=== PATIENT | male | born 1930 | race Caucasian/White ===

== ENCOUNTER 2018-02-24 11:25 | Inpatient (IN) | payer MEDICARE, OTHER ==
[~2018-02-24] VITALS: Ht 180.3 cm; Wt 92.5 kg
[2018-02-24 12:25] LABS: BASOPHILS # (AUTO) 0.04 x10^3/uL (0-0.1); BASOPHILS % (AUTO) 0 % (0-1); EOSINOPHILS # (AUTO) 0.09 x10^3/uL (0-0.4); EOSINOPHILS % (AUTO) 1 % (1-7); LYMPHOCYTES # (AUTO) 1.36 x10^3/uL (1-3.4); LYMPHOCYTES % (AUTO) 14 % (22-44); MD NO; MEAN CORPUSCULAR HEMOGLOBIN 31.8 pg (27.5-34.5); MEAN CORPUSCULAR HGB CONC 33.3 g/dL (33.2-36.2); MEAN CORPUSCULAR VOLUME 95.3 fL (81-97); MEAN PLATELET VOLUME 7.9 fL (7.4-10.4); MONOCYTES # (AUTO) 0.55 x10^3/uL (0.2-0.8); MONOCYTES % (AUTO) 6 % (2-9); NEUTROPHILS # (AUTO) 7.82 x10^3/uL (1.8-6.8); NEUTROPHILS % (AUTO) 79 % (42-75); PLATELET COUNT 257 x10^3/uL (130-400); RED BLOOD COUNT 5.18 x10^6/uL (4.38-5.82); RED CELL DISTRIBUTION WIDTH 13.5 % (9.4-14.8)
[2018-02-24 12:29] LABS: INTERNATIONAL NORMALIZED RATIO 1.04 (0.93-1.1); PROTHROMBIN TIME 10.7 Seconds (9.6-11.5)
[2018-02-24 12:31] LABS: ALBUMIN 3.4 g/dL (3.4-5.0); ANION GAP 11 mmol/L (5-15); CALCIUM 9.1 mg/dL (8.5-10.1); CHLORIDE 106 mmol/L (98-107)
[2018-02-24 12:37] LABS: ALANINE AMINOTRANSFERASE 18 U/L (12-78); ALKALINE PHOSPHATASE 112 U/L (45-117); BILIRUBIN,TOTAL 0.6 mg/dL (0.2-1.0); TOTAL PROTEIN 7.7 g/dL (6.4-8.2); TROPONIN I 0.017 ng/mL (0.000-0.045)
[2018-02-24] MEDS ORDERED: CEFTRIAXONE PMX 1GM/50ML 50 ML IV ONE (14:00)
[2018-02-24] MEDS ORDERED: AZITHROMYCIN 500 MG in SODIUM CHLORIDE 0.9% 250 ML IV ONE (14:00)
[2018-02-24] MEDS ORDERED: CHOL2000 PO (14:03)
[2018-02-24] MEDS ORDERED: GLIP5TAB22 PO (14:03)
[2018-02-24] MEDS ORDERED: QUET100T PO (14:03)
[2018-02-24] MEDS ORDERED: LEVE10007 PO ×2 (14:03)
[2018-02-24] MEDS ORDERED: BISMATROL PO (14:03)
[2018-02-24] MEDS ORDERED: ACET325T21 PO (14:03)
[2018-02-24] MEDS ORDERED: ASPI-515 PO (14:03)
[2018-02-24] MEDS ORDERED: SENN1TAB9 PO (14:03)
[2018-02-24] MEDS ORDERED: LORA-445 PO ×2 (14:03)
[2018-02-24] MEDS ORDERED: QUET50TA PO (14:03)
[2018-02-24] MEDS ORDERED: METF500T5 PO (14:03)
[2018-02-24] MEDS: PLEASE ENTER ALLERGIES MC SCH ×2 (14:05→22:00)
[2018-02-24] MEDS ORDERED: CEFTRIAXONE PMX 1GM/50ML 50 ML ONE (14:20)
[2018-02-24] MEDS ORDERED: SODIUM CHLORIDE 0.9% 1,000 ML IV SCH (14:37)
[2018-02-24] MEDS ORDERED: LIDOCAINE-MPF 2%, 2ML ONE (14:44)
[2018-02-24] MEDS ORDERED: SENNA/DOCUSATE TABLET PO PRN (15:00)
[2018-02-24] MEDS ORDERED: POLYETHYLENE GLYCOL 17 GM PACKET PO PRN (15:00)
[2018-02-24] MEDS ORDERED: BISACODYL 10 MG SUPP PR PRN (15:00)
[2018-02-24] MEDS ORDERED: LIDOCAINE-MPF 1%, 5ML INFIL ONE (15:00)
[2018-02-24] MEDS ORDERED: ACETAMINOPHEN 325 MG TABLET PO PRN ×2 (15:00)
[2018-02-24] MEDS ORDERED: ENALAPRILAT 1.25 MG/ML, 2ML IVPush PRN (15:00)
[2018-02-24] MEDS ORDERED: DOCUSATE 100 MG CAPSULE PO PRN (15:00)
[2018-02-24] MEDS ORDERED: ONDANSETRON 2MG/ML, 2ML IVPush PRN (15:00)
[2018-02-24] MEDS ORDERED: OMNIPAQUE 350 MG/ML, 100ML BOTTLE ONE (15:58)
[2018-02-24] MEDS ORDERED: LORazepam 0.5MG TABLET ONE (16:27)
[2018-02-24] MEDS: LORazepam 0.5MG TABLET PO SCH ×2 (16:41→21:48)
[2018-02-24 17:52] LABS: MICROSCOPIC NOT IND
[2018-02-24] MEDS: QUETIAPINE 100MG TABLET PO SCH (17:52)
[2018-02-24] MEDS: HEPARIN 5,000 UNITS/ML, 1ML SQ SCH ×2 (17:52→23:00)
[2018-02-24 17:57] LABS: CULTURE INDICATED? NO
[2018-02-24 19:00] LABS: TROPONIN I 0.024 ng/mL (0.000-0.045)
[2018-02-24 19:14] VITALS: BP 150/96
[2018-02-24] MEDS: QUETIAPINE 25MG TABLET PO SCH (21:48)
[2018-02-24] MEDS: LEVETIRACETAM 500 MG TABLET PO SCH (21:49)
[2018-02-25 00:56] LABS: BASOPHILS # (AUTO) 0.05 x10^3/uL (0-0.1); BASOPHILS % (AUTO) 1 % (0-1); EOSINOPHILS # (AUTO) 0.03 x10^3/uL (0-0.4); EOSINOPHILS % (AUTO) 0 % (1-7); LYMPHOCYTES # (AUTO) 1.17 x10^3/uL (1-3.4); LYMPHOCYTES % (AUTO) 10 % (22-44); MD NO; MEAN CORPUSCULAR HEMOGLOBIN 31.6 pg (27.5-34.5); MEAN CORPUSCULAR HGB CONC 33.7 g/dL (33.2-36.2); MEAN CORPUSCULAR VOLUME 93.8 fL (81-97); MONOCYTES # (AUTO) 0.99 x10^3/uL (0.2-0.8); MONOCYTES % (AUTO) 9 % (2-9); NEUTROPHILS # (AUTO) 9.13 x10^3/uL (1.8-6.8); NEUTROPHILS % (AUTO) 80 % (42-75); PLATELET COUNT 233 x10^3/uL (130-400); RED BLOOD COUNT 4.51 x10^6/uL (4.38-5.82); RED CELL DISTRIBUTION WIDTH 13.3 % (9.4-14.8)
[2018-02-25 01:06] LABS: ANION GAP 6 mmol/L (5-15); CALCIUM 8.2 mg/dL (8.5-10.1); CHLORIDE 110 mmol/L (98-107); CHOLESTEROL, TOTAL 146 mg/dL (140-239); TRIGLYCERIDES 142 mg/dL (50-200); VLDL CHOLESTEROL 28 mg/dL (0-25)
[2018-02-25 01:08] LABS: CHOL/HDL RATIO 4.6; HDL CHOL % 22 % (26-37); HDL CHOLESTEROL (DIRECT) 32 mg/dL (40-60); LDL CHOLESTEROL,CALCULATED 86 mg/dL (54-169); LDL/HDL RATIO 2.7 (0.5-3.0)
[2018-02-25 01:13] LABS: TROPONIN I 0.029 ng/mL (0.000-0.045)
[2018-02-25 01:23] VITALS: BP 139/86
[2018-02-25] MEDS: PLEASE ENTER ALLERGIES MC SCH ×2 (06:00→13:22)
[2018-02-25 08:23] VITALS: BP 128/67
[2018-02-25] MEDS: HEPARIN 5,000 UNITS/ML, 1ML SQ SCH ×3 (08:45→23:33)
[2018-02-25] MEDS: ASPIRIN 81 MG TABLET EC PO SCH (08:45)
[2018-02-25] MEDS: LEVETIRACETAM 500 MG TABLET PO SCH ×2 (08:45→20:54)
[2018-02-25] MEDS: CHOLECALCIFEROL 1,000 UNIT TABLET PO SCH (08:46)
[2018-02-25] MEDS: LORazepam 0.5MG TABLET PO SCH ×3 (08:46→21:29)
[2018-02-25] MEDS: QUETIAPINE 25MG TABLET PO SCH ×2 (08:46→20:54)
[2018-02-25 12:19] VITALS: BP 148/85
[2018-02-25] MEDS: QUETIAPINE 100MG TABLET PO SCH (12:36)
[2018-02-25 19:20] VITALS: BP 136/72
[2018-02-25] MEDS: METRONIDAZOLE PMX 500MG/100ML 100 ML IV SCH (20:53)
[2018-02-26 02:00] VITALS: BP 140/77
[2018-02-26] MEDS: METRONIDAZOLE PMX 500MG/100ML 100 ML IV SCH ×3 (05:27→20:06)
[2018-02-26 06:12] LABS: ANION GAP 8 mmol/L (5-15); CALCIUM 8.1 mg/dL (8.5-10.1); CHLORIDE 108 mmol/L (98-107)
[2018-02-26 06:14] LABS: BASOPHILS # (AUTO) 0.04 x10^3/uL (0-0.1); BASOPHILS % (AUTO) 0 % (0-1); EOSINOPHILS # (AUTO) 0.36 x10^3/uL (0-0.4); EOSINOPHILS % (AUTO) 4 % (1-7); LYMPHOCYTES # (AUTO) 1.32 x10^3/uL (1-3.4); LYMPHOCYTES % (AUTO) 15 % (22-44); MD NO; MEAN CORPUSCULAR HGB CONC 33.7 g/dL (33.2-36.2); MEAN CORPUSCULAR VOLUME 94.8 fL (81-97); MEAN PLATELET VOLUME 8.2 fL (7.4-10.4); MONOCYTES # (AUTO) 0.81 x10^3/uL (0.2-0.8); MONOCYTES % (AUTO) 9 % (2-9); NEUTROPHILS # (AUTO) 6.39 x10^3/uL (1.8-6.8); NEUTROPHILS % (AUTO) 72 % (42-75); PLATELET COUNT 180 x10^3/uL (130-400); RED BLOOD COUNT 4.46 x10^6/uL (4.38-5.82); RED CELL DISTRIBUTION WIDTH 13.3 % (9.4-14.8)
[2018-02-26 07:13] VITALS: BP 134/81
[2018-02-26] MEDS: CHOLECALCIFEROL 1,000 UNIT TABLET PO SCH (10:10)
[2018-02-26] MEDS: LORazepam 0.5MG TABLET PO SCH ×3 (10:10→20:07)
[2018-02-26] MEDS: ASPIRIN 81 MG TABLET EC PO SCH (10:10)
[2018-02-26] MEDS: QUETIAPINE 25MG TABLET PO SCH ×2 (10:11→20:07)
[2018-02-26] MEDS: LEVETIRACETAM 500 MG TABLET PO SCH ×2 (10:11→20:07)
[2018-02-26] MEDS: HEPARIN 5,000 UNITS/ML, 1ML SQ SCH ×2 (10:14→18:09)
[2018-02-26] MEDS: QUETIAPINE 100MG TABLET PO SCH (12:46)
[2018-02-26 12:55] VITALS: BP 144/74
[2018-02-26] MEDS ORDERED: CEFTRIAXONE 1,000 MG in SODIUM CHLORIDE 0.9% 50 ML IV SCH (14:00)
[2018-02-26] MEDS ORDERED: CEFD300C37 PO (15:05)
[2018-02-26] MEDS ORDERED: METR500T PO (15:05)
[2018-02-26] MEDS ORDERED: SIMV20TA PO (15:05)
[2018-02-26 19:05] VITALS: BP 149/80
[2018-02-27 02:00] VITALS: BP 135/71
[2018-02-27] MEDS: HEPARIN 5,000 UNITS/ML, 1ML SQ SCH ×2 (02:11→10:24)
[2018-02-27] MEDS: METRONIDAZOLE PMX 500MG/100ML 100 ML IV SCH ×2 (05:10→13:29)
[2018-02-27 07:50] VITALS: BP 133/84
[2018-02-27] MEDS: QUETIAPINE 25MG TABLET PO SCH (09:00)
[2018-02-27] MEDS: LORazepam 0.5MG TABLET PO SCH (10:24)
[2018-02-27] MEDS: CHOLECALCIFEROL 1,000 UNIT TABLET PO SCH (10:24)
[2018-02-27] MEDS: ASPIRIN 81 MG TABLET EC PO SCH (10:24)
[2018-02-27] MEDS: QUETIAPINE 100MG TABLET PO SCH (10:24)
[2018-02-27] MEDS: LEVETIRACETAM 500 MG TABLET PO SCH (10:24)
[2018-02-27 12:37] VITALS: BP 127/77
== END 2018-02-27 14:37 | DRG 64 ==
LOC: ED 12:28 → EDIP 13:53 → 4WST 17:24
PROVIDERS: ADMIT Hospitalist; ATTEND Hospitalist
PROC: 0HQDXZZ Repair Right Lower Arm Skin, External Approach (ICD-10-PCS; principal; 2018-02-24)
DX: I63.9 Cerebral infarction, unspecified (principal); G93.49 Other encephalopathy; J69.0 Pneumonitis due to inhalation of food and vomit; N17.0 Acute kidney failure with tubular necrosis; R13.10 Dysphagia, unspecified; Z66 Do not resuscitate; G30.9 Alzheimer's disease, unspecified; F02.80 Dementia in other diseases classified elsewhere, unspecified severity, without behavioral disturbance, psychotic disturbance, mood disturbance, and anxiety; I25.10 Atherosclerotic heart disease of native coronary artery without angina pectoris; R47.01 Aphasia; R29.6 Repeated falls; R29.810 Facial weakness; S61.511A Laceration without foreign body of right wrist, initial encounter; W01.0XXA Fall on same level from slipping, tripping and stumbling without subsequent striking against object, initial encounter; H91.90 Unspecified hearing loss, unspecified ear; G40.909 Epilepsy, unspecified, not intractable, without status epilepticus; Y93.01 Activity, walking, marching and hiking; E11.9 Type 2 diabetes mellitus without complications; E78.5 Hyperlipidemia, unspecified; I11.9 Hypertensive heart disease without heart failure; Z79.82 Long term (current) use of aspirin; Z95.5 Presence of coronary angioplasty implant and graft; Z95.1 Presence of aortocoronary bypass graft; Z79.84 Long term (current) use of oral hypoglycemic drugs; Z91.81 History of falling; Z95.2 Presence of prosthetic heart valve
CPT/HCPCS: 36415; 70450; 70496; 70498; 71045; 80048; 80053; 80061; 81003; 82962; 83605; 83880; 84443; 84484; 85025; 85610; 85730; 87040; 93005; 93306; 96374; 99285; J0696; J1644; Q9967; J7030